=== PATIENT | female | born 1960 | race Caucasian/White ===

== ENCOUNTER 2021-08-11 13:24 | Outpatient (CLI) | payer OTHER | END 2021-08-11 13:25 | disposition home or self-care (01) | LOC: CSHMAMMO 13:24 | PROVIDERS: ATTEND Family Medicine | DX: Z12.31 Encounter for screening mammogram for malignant neoplasm of breast (principal); N64.89 Other specified disorders of breast; Z80.3 Family history of malignant neoplasm of breast | CPT/HCPCS: 77063; 77067 ==

== ENCOUNTER 2021-08-23 12:56 | Outpatient (CLI) | payer OTHER | END 2021-08-23 12:57 | disposition home or self-care (01) | LOC: CSHMAMMO 12:56 | PROVIDERS: ATTEND Family Medicine | DX: R92.1 Mammographic calcification found on diagnostic imaging of breast (principal); Z80.3 Family history of malignant neoplasm of breast | CPT/HCPCS: G0279 ==

== ENCOUNTER → 2021-09-07 | Day surgery (SDC) | payer OTHER | LOC: CSHMAMMO 07:24 | PROVIDERS: ATTEND Family Medicine | PROC: 0H9T3ZX Drainage of Right Breast, Percutaneous Approach, Diagnostic (ICD-10-PCS; principal; 2021-09-07) | DX: D24.1 Benign neoplasm of right breast (principal); N60.31 Fibrosclerosis of right breast; Z88.5 Allergy status to narcotic agent | CPT/HCPCS: 19081; 76098; 88305 ==

== ENCOUNTER 2023-01-24 16:32 | Emergency (ER) | payer OTHER ==
[2023-01-24] MEDS ORDERED: Acetaminophen 500 MG TAB ONE (17:30)
[2023-01-24] MEDS ORDERED: Ibuprofen 200 MG TAB ONE (17:31)
[2023-01-24] MEDS ORDERED: Boostrix 0.5 ML (Tdap) VIAL (>/=7 yrs of age) ONE (17:59)
== END 2023-01-25 00:29 | disposition home or self-care (01) ==
LOC: CSHERS 16:32
DX: S42.212A Unspecified displaced fracture of surgical neck of left humerus, initial encounter for closed fracture (principal); E11.9 Type 2 diabetes mellitus without complications; I10 Essential (primary) hypertension; W01.198A Fall on same level from slipping, tripping and stumbling with subsequent striking against other object, initial encounter; Z23 Encounter for immunization
CPT/HCPCS: 70450; 71045; 72125; 90471; 90715

== ENCOUNTER 2023-01-29 16:43 | Outpatient (CLI) | payer OTHER ==
[2023-01-29 17:47] LABS: Hemoglobin 10.8 g/dL (12.0-15.5); Mean Corpuscular HGB CONC 33.6 g/dL (32.0-36.0); Mean Corpuscular Hemoglobin 30.9 pg (27.0-33.0); Mean Corpuscular Volume 91.7 fl (81.6-98.3); Mean Platelet Volume 9.9 fl (7.4-10.4); Platelet Count 170 10x3/uL (150-450); RBC Distribution Width 13.2 % (11.5-14.5); White Blood Cell (WBC) Count 6.1 10x3/uL (3.5-10.5)
[2023-01-29 17:52] LABS: Anion Gap 22 mmol/L (10-20); BUN (Urea Nitrogen) 18 mg/dL (9.8-20.1); Calc. Creatinine Clearance 0 mL/min (70-130); Calcium 8.8 mg/dL (7.8-10.44); Carbon Dioxide 14 mmol/L (22-29); Chloride 101 mmol/L (98-107); Estimated GFR 51; Potassium 4.9 mmol/L (3.5-5.1); Sodium 132 mmol/L (136-145)
[2023-01-29 18:08] LABS: Glucose 685 mg/dL (70-105)
== END 2023-01-29 16:44 | disposition home or self-care (01) ==
LOC: CSHLAB 16:43
PROVIDERS: ATTEND Orthopaedic Surgery
DX: Z01.818 Encounter for other preprocedural examination (principal); S42.292A Other displaced fracture of upper end of left humerus, initial encounter for closed fracture
CPT/HCPCS: 80048; 85027; 93005; 93010

== ENCOUNTER 2023-02-02 10:44 | Day surgery (SDC) | payer OTHER ==
[2023-01-29 17:37] VITALS: BMI 29.7
[~2023-02-02 10:44] MED LIST: Bupivacaine HCl 0.5%/Epinephrine 1:200,000/PF 30 ml Vial ONE; Bupivacaine/Epinephrine 0.25% 30 ML VIAL ONE; Ketorolac Tromethamine 30 MG/ML VIAL ONE; Neomycin-Polymyxin 1 ML AMP ONE
[2023-02-02] MEDS ORDERED: CEFAZOLIN 2 GM VIAL ONE (11:39)
[2023-02-02] MEDS ORDERED: Bupivacaine HCl 0.5%/Epinephrine 1:200,000/PF 30 ml Vial ONE (13:23)
[2023-02-02] MEDS ORDERED: Bupivacaine/Epinephrine 0.25% 30 ML VIAL ONE (13:23)
[2023-02-02] MEDS ORDERED: ePHEDrine Sulfate 50 MG/10 ML VIAL ONE (13:37)
[2023-02-02] MEDS ORDERED: PROPOFOL 20 ML ONE (13:37)
[2023-02-02] MEDS ORDERED: PHENYLEPHRINE-NS 100 MCG/ML 10 ML SYRINGE ONE (13:38)
[2023-02-02] MEDS ORDERED: Fentanyl 100 MCG/2 ML VIAL ONE (13:38)
[2023-02-02] MEDS ORDERED: Lidocaine 1% PF 5 ML VIAL ONE (13:38)
[2023-02-02] MEDS ORDERED: Glycopyrrolate 0.2 MG/ML 5 ML SYRINGE ONE (13:38)
[2023-02-02] MEDS ORDERED: Rocuronium Bromide 10 MG/ML (10ML VIAL) ONE (13:38)
[2023-02-02] MEDS ORDERED: Dexamethasone 4 mg/ml Vial ONE (13:38)
[2023-02-02] MEDS ORDERED: Ondansetron PF 4 MG/2 ML Vial ONE (13:38)
[2023-02-02] MEDS ORDERED: Dextrose 50% Abboject 50 ML SYRINGE ONE (15:05)
[2023-02-02] MEDS ORDERED: SUGAMMADEX SODIUM 200 MG/2 ML VIAL ONE (15:21)
== END 2023-02-02 17:40 | disposition home or self-care (01) ==
LOC: CSHSDC 10:44
PROVIDERS: ATTEND Orthopaedic Surgery
PROC: 0PSD04Z Reposition Left Humeral Head with Internal Fixation Device, Open Approach (ICD-10-PCS; principal; 2023-02-02)
DX: S42.292A Other displaced fracture of upper end of left humerus, initial encounter for closed fracture (principal); I10 Essential (primary) hypertension; E11.9 Type 2 diabetes mellitus without complications; E78.5 Hyperlipidemia, unspecified; F32.A Depression, unspecified; H54.7 Unspecified visual loss; Z79.899 Other long term (current) drug therapy; Z90.710 Acquired absence of both cervix and uterus; Z88.5 Allergy status to narcotic agent; Z91.040 Latex allergy status; Z79.4 Long term (current) use of insulin; W01.0XXA Fall on same level from slipping, tripping and stumbling without subsequent striking against object, initial encounter
CPT/HCPCS: 36416; C1713; J1100; J1885; J2405; J2704; J3010; J7999